=== PATIENT | male | born 1960 | race Caucasian/White ===

== ENCOUNTER 2021-05-24 08:28 | Day surgery (SDC) | payer MEDICAID ==
[~2021-05-24] VITALS: Ht 170.2 cm; Wt 78.0 kg
[~2021-05-24 08:28] MED LIST: ALBMDI INH; APIX2.5T PO; ASCO500T20 PO; DEC4 PO; DOXY100C2 PO; HYDR200T38 PO; VITD2000 PO
[2021-05-24] MEDS ORDERED: SIMETHICONE 40 MG/0.6 ML ML ONE (09:18)
[2021-05-24] MEDS ORDERED: MIDAZOLAM HCL 5 MG/5 ML VIAL ONE (09:19)
[2021-05-24] MEDS ORDERED: fentaNYL CITRATE/PF 100 MCG/2 ML AMP ONE (09:19)
[2021-05-24 14:49] VITALS: BP_SYST 130
== END 2021-05-24 10:42 | disposition home or self-care (01) ==
LOC: SDS 08:28 → SMU 08:30 → SDS 10:42
PROVIDERS: ATTEND Internal Medicine
DX: Z12.11 Encounter for screening for malignant neoplasm of colon (principal); D12.2 Benign neoplasm of ascending colon; D12.4 Benign neoplasm of descending colon; K57.30 Diverticulosis of large intestine without perforation or abscess without bleeding; K64.8 Other hemorrhoids; Z79.899 Other long term (current) drug therapy
CPT/HCPCS: 36415; 45380; 45385; 87426; 88305 ×2; 99152; G0378; J2250; J3010